=== PATIENT | female | born 1965 | race African-American/Black ===

== ENCOUNTER 2017-05-27 17:31 | Emergency (ER) | payer SELFPAY ==
--- NOTE | 2017-05-27 21:35 | ER Physician Documentation ---
DATE OF SERVICE: The patient came from [facility]. Evaluation needs to be done by the psychiatrist and if there are no medical problems, then the patient will be admitted under psychiatric [facility]. Vital signs were done by the triage nurse, Leo. Vital signs show temperature 97, pulse of 80, respirations 18, blood pressure 124/60, oxygen saturation 97%. Height of 5 feet 5 inches, weight 130 pounds. The patient says she does want to get admitted in the hospital. She is angry. She says she does not have any psychiatric problem. History of present illness, essentially she says she has no acute medical problems. Her past medical history includes history of hypertension, hypothyroidism, dementia. She has depression history. The patient DICTATION ENDS HERE. JOB# [id number]
--- NOTE | 2017-05-27 21:38 | Transfer Summary ---
DATE OF TRANSFER: 05/27/2017 HOSPITAL COURSE: The patient was over here yesterday and then she went over there at [place] and the patient was given antibiotics. The patient has some infection in the right calf area and the patient was given antibiotic and IV injection. The patient is feeling better, but the patient wanted to know for sure whether she is getting better or not. That is why, the patient came over here. The patient wanted penicillin. The patient is getting cephalexin 1 capsule 4 times a day for 7 days, Cyclobenzaprine 10 mg p.o. 3 times a day, Clindamycin 300 mg 4 times a day and Bactrim DS b.i.d. for 7 days. The patient's vital signs were found to be normal. Height is 5 feet 4 inches, weight is 170. HISTORY OF PRESENT ILLNESS: The patient does not have any mild ache in the right calf area, otherwise the right calf area was evaluated and it shows that there is mild warmth in the right calf area and there is no pus coming out. There is no drainage. The patient is walking. The patient is standing. The patient has no acute illnesses noted. Chest is found to be clear. Heart remains normal heart sounds. Fourth heart sound is present, third heart sound is absent. No other medical problems. PAST SURGICAL HISTORY: Includes history of x 4. SURGERIES: None. She is 52 years old. She is . Height is 5 feet 4 inches, weight 170 pounds. FAMILY HISTORY: Mother, father had carcinoma. SURGERIES: None known. PHYSICAL EXAMINATION: The patient was examined. CHEST: The chest was found to be clear. Trachea being central. Fairly good air entry in both lungs without any rales, rhonchi, bronchial breathing. ABDOMEN: Soft, benign and negative. HEART: Normal heart sounds. Soft fourth heart sounds. Second heart sound physiologically split. Third heart sound is absent. REVIEW OF SYSTEMS: A 12-point review of system is essentially benign and negative. The peripheral pulses are found to be within normal limits. CLINICAL IMPRESSION: The patient has a healing abscess type cellulitis in the right calf area. She is walking, she is talking. She is moving around. She has been standing in front of me for almost 1 hour and she is getting right antibiotics, cephalexin, clindamycin, and Sulfa, Bactrim DS b.i.d. and hopefully with this antibiotic she should be getting better. She does not need any other antibiotics to be given. She wanted penicillin and I explained to her that Keflex is almost similar to penicillin. There is a nearest derivative of penicillin, so she should go home with all the same antibiotics. FINAL IMPRESSION: Would be that the patient has a superficial abscess that does not need any drainage. She has a couple of scars on the thigh area. She can stand. She can walk. She does not have any pain. If she has any pain, she can take Motrin 2 tablets 2-3 times a day. And the other diagnosis that she has is a mild obesity, x 4. The patient is advised to go home and the nurse is here. ALLERGIES: None known. Thank you again. Since the patient is healing there is only very mild redness and mild heat to touch maybe 1/10 heat to touch. There is no need to do any other lab workup to be done on her. The patient can be discharged to home. Thank you again. A 12-point review of systems negative. FAMILY HISTORY: Negative. Septic shock is negative. MRSA was not done, not needed at the present moment. The patient came from home. The patient yesterday could not be admitted to [facility]. She did not want to be admitted as she wanted to go to the airport, drop 2 people out at that time. Thank you again. JOB# [id number]
== END 2017-05-27 21:10 | disposition home or self-care (01) ==
LOC: ER 17:31
DX: M79.89 Other specified soft tissue disorders (principal); I10 Essential (primary) hypertension; E03.9 Hypothyroidism, unspecified
CPT/HCPCS: Z7502